=== PATIENT | female | born 1975 ===

== ENCOUNTER 2018-10-25 09:56 | Outpatient (REF) | payer MEDICAID, SELFPAY ==
[2018-10-25 21:04] LABS: Abs Immature Grans 0.01 k/cumm (0.0-0.09); Absolute Basophil Count 0.07 k/cumm (0.0-0.2); Absolute Eosinophil Count 0.27 k/cumm (0.0-0.7); Absolute Lymphocyte Count 2.68 k/cumm (1.2-3.4); Absolute Neutrophil Count 4.67 k/cumm (1.2-6.7); Basophils % 0.8; Eosinophils % 3.3; HGB 13.8 g/dL (12.0-15.5); Immature Grans % 0.1; Lymphocytes % 32.3; Mean Corp. HGB Concentration 32.9 g/dL (32.0-36.0); Mean Corpuscular Hemoglobin 30.4 pg (27.0-33.0); Mean Corpuscular Volume 92.5 fL (80-95); Monocytes % 7.2; Neutrophils % 56.3; Platelet Count 297 x1000/uL (130-400); RBC 4.54 m/cumm (4.00-5.20); RBC Distribution Width 12.7 % (11.7-14.6)
[2018-10-25 21:15] LABS: ALT 17 U/L (12-78); AST 12 U/L (15-37); Albumin 3.5 g/dL (3.4-5.0); Alkaline Phosphatase 84 U/L (46-116); Anion Gap 8.2 mmol/L (3-11); BUN 14 mg/dL (7-18); Bilirubin, Total 0.3 mg/dL (0.2-1.0); CO2 28.8 mmol/L (21.0-32.0); CREATININE 0.62 mg/dL (0.55-1.02); Chloride 103 mmol/L (98-107); Glucose 76 mg/dL (70-100); Lipase 94 U/L (73-393); Potassium 4.5 mmol/L (3.5-5.1); Sodium 140 mmol/L (136-145); Total Protein 6.7 g/dL (6.4-8.2)
[2018-10-25 21:30] LABS: Calcium 9.2 mg/dL (8.5-10.1)
== END 2018-10-25 10:16 ==
LOC: NCHCN 09:56
PROVIDERS: PCP Registered Nurse; Visit Provider Registered Nurse
DX: R10.9 Unspecified abdominal pain (principal)
CPT/HCPCS: 80053; 83690; 85025

== ENCOUNTER 2018-10-26 13:40 | Outpatient (REF) | payer MEDICAID, SELFPAY ==
[2018-10-26 21:03] LABS: Bilirubin Negative (Negative); Blood Negative (Negative); Clarity Clear; Glucose Negative (Negative); Ketones Trace mg/dL (Negative); Leukocyte Esterase Negative (Negative); Nitrite Negative (Negative); Urobilinogen 0.2 EU/dL (Up TO 0.2)
== END 2018-10-26 14:00 ==
LOC: NCHCN 13:40
PROVIDERS: PCP Registered Nurse; Visit Provider Registered Nurse
DX: R10.9 Unspecified abdominal pain (principal); R31.9 Hematuria, unspecified
CPT/HCPCS: 81003

== ENCOUNTER 2019-04-23 15:28 | Outpatient (REF) | payer MEDICAID, SELFPAY ==
[2019-04-23 22:22] LABS: Calculated LDL 70 mg/dL; Cholesterol 165 mg/dL (50-200); HDL Cholesterol 76 mg/dL (40-60); TSH 1.28 uIU/mL (0.36-3.74); Triglyceride 97 mg/dL (30-150)
[2019-04-26 15:04] LABS: Testosterone, Free 0.22 ng/dL (0.06-0.98); Testosterone, Total 31 ng/dL (8-60)
== END 2019-04-23 15:48 ==
LOC: NCHCN 15:28
PROVIDERS: PCP Registered Nurse; Visit Provider Registered Nurse
DX: L68.0 Hirsutism (principal); Z13.29 Encounter for screening for other suspected endocrine disorder; Z84.89 Family history of other specified conditions; Z13.220 Encounter for screening for lipoid disorders
CPT/HCPCS: 80061; 84402; 84403; 84443

== ENCOUNTER 2020-05-30 18:18 | Outpatient (REF) | payer MEDICAID, SELFPAY ==
[2020-06-03 04:52] LABS: SARS-CoV-2 RNA Undetected (Undetected); SARS-CoV-2 Specimen Source Nasal
== END 2020-05-30 18:38 ==
LOC: NCHCN 18:18
PROVIDERS: PCP Registered Nurse; Visit Provider Registered Nurse
DX: J06.9 Acute upper respiratory infection, unspecified (principal)
CPT/HCPCS: U0003

== ENCOUNTER 2021-02-18 15:47 | Outpatient (REF) | payer MEDICAID, SELFPAY ==
[2021-02-20 10:48] LABS: Lyme Ab w Rflx to Lyme Confirm Negative (Negative)
[2021-02-24 13:01] LABS: Anaplasma phagocytophilum Negative (Negative); B. miyamotoi PCR Negative (Negative); Babesia divergens/MO-1 Negative (Negative); Babesia duncani Negative (Negative); Babesia microti Negative (Negative); Ehrlichia chaffeensis Negative (Negative); Ehrlichia ewingii/canis Negative (Negative); Ehrlichia muris eauclairensis Negative (Negative)
== END 2021-02-18 15:48 | disposition home or self-care (01) ==
LOC: NCHCN 15:47
PROVIDERS: PCP Registered Nurse; Visit Provider Registered Nurse
DX: R59.0 Localized enlarged lymph nodes (principal)
CPT/HCPCS: 87798; 86618

== ENCOUNTER 2025-03-06 15:44 | Outpatient (REF) | payer MEDICAID, SELFPAY ==
[2025-03-08 09:24] LABS: Hepatitis C Ab w Rflx HCV PCR Negative (Negative)
[2025-03-08 09:41] LABS: HIV-1/2 Ag & Ab Screen Negative (Negative)
[2025-03-08 10:59] LABS: Syphilis Serology (RPR) Negative (Negative)
[2025-03-08 12:34] LABS: Chlamydia Result Negative (Negative); GC Result Negative (Negative)
== END 2025-03-06 15:45 | disposition home or self-care (01) ==
LOC: NCHCN 15:44
PROVIDERS: PCP Registered Nurse; Visit Provider Physician Assistant
DX: R39.15 Urgency of urination (principal); Z11.59 Encounter for screening for other viral diseases
CPT/HCPCS: 86803; 87077; 87389; 87491; 87591; 86592; 87086; 87186